=== PATIENT | female | born 1945 | race Caucasian/White ===

== ENCOUNTER → 2016-09-13 | Outpatient (CLI) | payer OTHER ==
[~2016-09-13] MED LIST: ALBU8I INH; CIPR500T4 PO; FLAG500T PO; HYDR-3533 PO; LORT5TAB PO; MS C30TA5 PO; NICO14T TD; POTA20IN3 PO; PROT40TA PO; PROZ20CA11 PO
[2016-09-13 14:01] LABS: BLOOD GAS BASE EXCESS -0.4 mmol/L (-2-2); BLOOD GAS HCO3 24 mmol/L (22-26); BLOOD GAS O2 HGB SATURATION 90 % (90-100); BLOOD GAS OXYGEN CONTENT 15.3 Vol % (12.0-20.0); BLOOD GAS PCO2 41 mmHg (38-42); BLOOD GAS PO2 82 mmHg (61-120); TEMP CORR TO 98.6
[2016-09-13 14:02] LABS: CRITICAL VALUE YES; DRAW SITE RT RADIAL; FIO2 21 %; NUMBER OF ARTERIAL PUNCTURES 1; STAT NO; ULNAR PULSE PRESENT
--- NOTE | 2016-09-16 09:30 | RSPPFT ---
DATE OF PROCEDURE: 09/13/16 COMMENTS: VOLUMES DYNAMIC: FVC and FEV1 normal. STATIC: RV mildly increased; VTG and TLC normal. FLOWS: FEV1% moderately reduced; FEF 25-75 severely reduced. DIFFUSION: Moderately reduced. FLOW VOLUME LOOP: Pattern of variable intrathoracic airways obstruction. IMPRESSION: Mild obstructive ventilatory defect with mild to moderate reduction in diffusion and increased airways resistance. There is improvement post-bronchodilator.
== END ==
LOC: HRSP 12:42
PROVIDERS: ATTEND Internal Medicine
DX: J44.9 Chronic obstructive pulmonary disease, unspecified (principal); R05 Cough
CPT/HCPCS: 36600; 82805; 94060; 94620; 94726; 94729